=== PATIENT | male | born 1985 | race Caucasian/White ===

== ENCOUNTER 2021-10-14 11:07 | Outpatient (CLI) | payer OTHER ==
--- NOTE | 2021-10-14 12:39 | XRay Report ---
CHEST 2 VIEWS INDICATION / CLINICAL INFORMATION: POSITIVE PPD - RULE OUT ACTIVE TB. COMPARISON: None available. FINDINGS: SUPPORT DEVICES: None. HEART / MEDIASTINUM: No significant abnormality. LUNGS / PLEURA: No significant pulmonary or pleural abnormality. No pneumothorax. ADDITIONAL FINDINGS: No significant additional findings. IMPRESSION: 1. No acute findings. Signer Name: Robbie Parker MD Signed: 10/14/2021 12:34 PM Workstation Name: [id number]
== END 2021-10-14 11:08 | disposition home or self-care (01) ==
LOC: XRAY 11:07
PROVIDERS: ATTEND Psychiatry & Neurology Psychiatry
DX: L30.9 Dermatitis, unspecified (principal); K04.6 Periapical abscess with sinus; Z22.7 Latent tuberculosis
CPT/HCPCS: 71046